=== PATIENT | male | born 1970 | race Asian ===

== ENCOUNTER 2021-04-26 10:10 | Day surgery (SDC) | payer OTHER, SELFPAY ==
[~2021-04-26] VITALS: Ht 165.1 cm; Wt 74.8 kg
[2021-04-26] MEDS ORDERED: LIDOCAINE 2% 100 MG/5 ML UJET TP ONE (11:04)
[2021-04-26] MEDS ORDERED: diphenhydrAMINE 50 MG/ML VIAL ONE (11:05)
[2021-04-26] MEDS ORDERED: fentaNYL citrate 0.05 MG/ML VIAL ONE ×2 (11:06)
[2021-04-26] MEDS ORDERED: MIDAZOLAM 5 MG/5 ML VIAL ONE (11:06)
[2021-04-26] MEDS ORDERED: MIDAZOLAM 2 MG/2 ML VIAL IVP ONE (12:45)
[2021-04-26] MEDS ORDERED: fentaNYL citrate 0.05 MG/ML VIAL IVP ONE (12:45)
== END 2021-04-26 12:50 | disposition home or self-care (01) ==
LOC: MDS 10:10 → MMU 10:11 → MDS 12:50
PROVIDERS: ATTEND Internal Medicine Gastroenterology
DX: Z12.11 Encounter for screening for malignant neoplasm of colon (principal); K63.5 Polyp of colon; E11.9 Type 2 diabetes mellitus without complications; K57.30 Diverticulosis of large intestine without perforation or abscess without bleeding; Z79.899 Other long term (current) drug therapy; Z20.822 Contact with and (suspected) exposure to COVID-19
CPT/HCPCS: 45385; 87426; J1200; J2250; J3010